=== PATIENT | male | born 1970 | race Caucasian/White ===

== ENCOUNTER 2020-03-22 11:18 | Inpatient (IN) | payer BC, OTHER ==
[~2020-03-22 11:18] MED LIST: diazePAM 5 MG TABLET PO SCH
--- NOTE | 2020-03-22 11:52 | BHS.RME ---
Substance Use & Tx History - Substance Use History Heroin Substance amount: 6-7 bags Frequency of use: Daily Substance route: Inhalation (ex: sniffing or snorting) Date of Last Use: 03/19/20 Nicotine Substance amount: 7 ciggs Frequency of use: Daily Substance route: Smoking Physical/Psych/Mental Status - Behavior General Behavior: Increased activity (restlessness, agitation) Eye Contact: Normal - Cooperativeness Cooperativeness: Cooperative - Thinking Thought Processes: Tight, Logical, Goal Directed Thought content: Future oriented - Physical Health Problems Is patient presently having any pain?: No Does patient presently have any injuries (include location): No Does patient currently have a fever: No Is patient : No CIWA Nausea/Vomitin Muscle Tremors: 3 Anxiety: 3 Agitation: 2 Paroxysmal Sweats: 2 Orientation: 0-Oriented Tacttile Disturbances: 0-None Auditory Disturbances: 0-None Visual Disturbances: 0-None Headache: 1-Very Mild CIWA-Ar Total Score: 13
[2020-03-22 13:10] VITALS: BMI 34.7
--- NOTE | 2020-03-22 13:10 | HP ---
COWS - Scale Resting Pulse: 1= SD 81-100 Sweatin= Chills/Flushing Restless Observation: 1= Difficult to Sit Still Pupil Size: 0= Normal to Room Light Bone or Joint Aches: 1= Mild Discomfort Runny Nose/ Eye Tearin= Nasal Congestion GI Upset > 30mins: 1= Stomach Cramp Tremor Observation: 1= Tremor [place], Not Seen Yawning Observation: 1= 1-2x During Session Anxiety or Irritability: 2=Irritable/Anxious Goose Flesh Skin: 0=Smooth Skin (mitigated by use of heroin yesterday) COWS Score: 10 CIWA Score Nausea/Vomitin Muscle Tremors: 3 Anxiety: 3 Agitation: 2 Paroxysmal Sweats: 2 Orientation: 0-Oriented Tacttile Disturbances: 0-None Auditory Disturbances: 0-None Visual Disturbances: 0-None Headache: 1-Very Mild CIWA-Ar Total Score: 13 - Admission Criteria [facility]AS[facility] Guidelines: Admission for Medically Managed Detox: Requires at least one of the followin. CIWA greater than 12 2. Seizures within the past 24 hours 3. Delirium tremens within the past 24 hours 4. Hallucinations within the past 24 hours 5. Acute intervention needed for co occurring medical disorder 6. Acute intervention needed for co occurring psychiatric disorder 7. Severe withdrawal that cannot be handled at a lower level of care (continued vomiting, continued diarrhea, abnormal vital signs) requiring intravenous medication and/or fluids 8. Admitting History and Physical - Smoking History Smoking history: Current every day smoker Have you smoked in the past 12 months: Yes Aproximately how many cigarettes per day: 20 Admission [facility] Chief Complaint: " I need to stop using drugs and using Xanax." Allergies/Adverse Reactions: Allergies Allergy/AdvReac Type Severity Reaction Status Date / Time No Known Allergies Allergy Verified 03/22/20 13:04 History of Present Illness: 49 year old male with history of opioid dependence on agonist therapy, sedative dependence with withdrawals, cocaine dependence, nicotine dependence. He was being detoxed from [facility] and last received 20 mg of methadone yesterday. He wants to continue his methadone detox here and also his sedative detox. Substance Use History Heroin Substance amount: 6-7 bags Frequency of use: Daily Substance route: Inhalation (ex: sniffing or snorting) Date of Last Use: 03/19/20 Nicotine Substance amount: 7 ciggs Frequency of use: Daily Substance route: Smoking Xanax 2 mg - 2 tabs every 3 days, started at age 48 and last used 2 days ago Cocaine, $30 every three weeks, started at age 34 and last used yesterday. CIWA=13 NORBERTO=0 Urine Tox: ANNE-MARIE, FEN, MOP, BZO PMH: Obesity Psurg: Left Knee knee cap fracture, Right Knee Surgery for meniscal tear. Patient meets criteria for detox as he is concurrently using benzodiazepines and opiates as exhibited by his urine tox. He is at high risk for overdose. Exam Limitations: No Limitations - Ebola screening Have you traveled outside of the country in the last 21 days: No Have you had contact with anyone from an Ebola affected area: No Have you been sick,other than usual withdrawal symptoms: No Do you have a fever: No - Review of Systems Constitutional: Chills, Diaphoresis EENT: reports: No Symptoms Reported Respiratory: reports: No Symptoms reported Cardiac: reports: No Symptoms Reported GI: reports: No Symptoms Reported : reports: No Symptoms Reported Musculoskeletal: reports: No Symptoms Reported Integumentary: reports: No Symptoms Reported Neuro: reports: No Symptoms reported, Headache, Tremors Endocrine: reports: No Symptoms Reported Hematology: reports: No Symptoms Reported Psychiatric: reports: Judgement Intact, Mood/Affect Appropiate, Orientated x3, Agitated, Anxious Other Systems: Reviewed and Negative Patient History - Patient Medical History Hx Asthma: No Hx Chronic Obstructive Pulmonary Disease (COPD): No Hx Cardiac Disorders: No Hx Hypertension: No Hx Seizures: No Hx Diabetes: No Hx Gastrointestinal Disorders: No Hx Genitourinary Disorders: No Hx Sexually Transmitted Disorders: No Hx Renal Disease (ESRD): No Hx Depression: Yes Hx Suicide Attempt: No Hx Schizophrenia: No - Patient Surgical History Past Surgical History: Yes Hx Neurologic Surgery: No Hx Cataract Extraction: No Hx Cardiac Surgery: No Hx Lung Surgery: No Hx Breast Surgery: No Hx Breast Biopsy: No Hx Abdominal Surgery: No Hx Appendectomy: No Hx Cholecystectomy: No Hx Genitourinary Surgery: No Hx Section: No Hx Orthopedic Surgery: Yes (left knee fx/ rt Torn miniscus Sport injury) Anesthesia Reaction: No - PPD History Previous Implant?: Yes Documented Results: Negative w/proof Implanted On Prior R Admission?: Yes PPD to be Administered?: Yes - Smoking Cessation Smoking history: Current every day smoker Have you smoked in the past 12 months: Yes Aproximately how many cigarettes per day: 20 Hx Chewing Tobacco Use: No Initiated information on smoking cessation: Yes 'Breaking Loose' booklet given: 03/22/20 - Substances abused Heroin Other (specify): 6-7 bags Substance route: Inhalation Frequency: Daily Amount used: 6-7 bags Age of first use: 48 Date of last use: 03/21/20 Cocaine Substance route: Inhalation Frequency: 1-3 times last 30 days Amount used: $30 Age of first use: 34 Date of last use: 03/21/20 Alprazolam (Xanax) Substance route: Oral Frequency: 3-6 times per week Amount used: 2mg - 2 tabs Age of first use: 48 Date of last use: 03/21/20 Admission Physical Exam [facility] Physical General Appearance: Yes: Obese, Irritable, Sweating, Anxious HEENTM: Yes: EOMI, Hearing grossly Normal, Normal ENT Inspection, Normocephalic, Normal Voice, FRANKI, Pharynx Normal, Tm's normal Respiratory: Yes: Chest Non-Tender, Lungs Clear, Normal Breath Sounds, No Respiratory Distress, No Accessory Muscle Use Neck: Yes: No masses,lesions,Nodules, Supple, Trachea in good position Breast: Yes: Within Normal Limits Cardiology: Yes: Regular Rhythm, Regular Rate, S1, S2 Abdominal: Yes: Normal Bowel Sounds, Non Tender, Soft, Protuberent Genitourinary: Yes: Within Normal Limits Back: Yes: Normal Inspection Musculoskeletal: Yes: full range of Motion, Gait Steady, Pelvis Stable Extremities: Yes: Normal Capillary Refill, Normal Inspection, Normal Range of Motion, Non-Tender Neurological: Yes: laboratory worker II-XII NML intact, Fully Oriented, Alert, Motor Strength 5/5, Normal Mood/Affect, Normal Response Integumentary: Yes: Normal Color, Dry, Warm Lymphatic: Yes: Within Normal Limits - Diagnostic (1) Opioid dependence Current Visit: Yes Status: Acute (2) Cocaine use disorder Current Visit: Yes Status: Acute (3) Sedative, 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 Current Visit: Yes Status: Acute (4) Nicotine dependence Current Visit: Yes Status: Acute Cleared for Admission [facility] - Detox or Rehab [facility] Level of Care: Medically Managed Detox Regimen/Protocol: Methadone, Valium Claeared for Rehab Admission: No Screened but not Admitted - Documentation of Visit Screened but not Admitted: No Breathalyzer - Breathalyzer Breathalyzer: 0 Vital Signs - Vital Signs Vital signs refused: No Temperature: 97 F Pulse Rate: 63 Respiratory Rate: 10 Blood Pressure: 103/67 BP Location: Left Arm Blood Pressure position: Sitting - Height Height: 6 ft 1 in - Weight Weight: 263 lb Weight measurement method: Standing scale - BMI Body Mass Index (BMI): 34.7 - Bowel Function Bowel Movement: No Inpatient Rehab Admission - Rehab Decision to Admit Inpatient rehab admission?: No
[2020-03-22] MEDS ORDERED: MENTHOL/PHENOL 1 EACH UD MM PRN (13:33)
[2020-03-22] MEDS ORDERED: IBUPROFEN 400 MG TABLET (FP) PO PRN (13:33)
[2020-03-22] MEDS ORDERED: METHOCARBAMOL 500 MG TABLET PO PRN (13:33)
[2020-03-22] MEDS ORDERED: diazePAM 5 MG TABLET PO PRN ×2 (13:33→13:40)
[2020-03-22] MEDS ORDERED: MAG HYDROX/AL HYDROX/SIMETH 30 ML UNIT-DOSE CUP PO PRN (13:33)
[2020-03-22] MEDS ORDERED: MAGNESIUM HYDROX 2400MG/30ML ORAL SUSPENSION 30 ML CUP PO PRN (13:33)
[2020-03-22] MEDS ORDERED: MAGNESIUM CITRATE 300 ML BOTTLE PO PRN (13:33)
[2020-03-22] MEDS ORDERED: ACETAMINOPHEN 325 MG TABLET (FP) PO PRN ×2 (13:33)
[2020-03-22] MEDS ORDERED: ONDANSETRON *ODT* 4 MG TABLET SL PRN (13:33)
[2020-03-22] MEDS ORDERED: BISMUTH SUBSALICYLATE 524 MG/30 ML UD PO PRN (13:33)
[2020-03-22] MEDS ORDERED: NICOTINE POLACRILEX 2 MG GUM BUC PRN (13:33)
[2020-03-22] MEDS ORDERED: METHADONE HCL 10 MG TABLET (FOR DETOX USE ONLY) ONE (13:43)
[2020-03-22] MEDS ORDERED: METHADONE HCL 10 MG TABLET PO SCH (13:45)
[2020-03-22] MEDS ORDERED: METHADONE HCL 10 MG TABLET (FOR DETOX USE ONLY) PO ONE ×2 (14:15→14:55)
[2020-03-22] MEDS ORDERED: METHADONE HCL 5 MG TABLET (FOR DETOX USE ONLY) PO ONE ×2 (14:15→14:30)
[2020-03-22] MEDS: diazePAM 5 MG TABLET PO SCH ×3 (15:07→22:29)
[2020-03-22] MEDS: ALBUTEROL SO4 HFA INHALER IH SCH ×2 (15:07→22:29)
[2020-03-22] MEDS: PRENATAL VITAMINS W/ FOLIC ACID TABLET (FP) PO SCH (15:08)
[2020-03-22] MEDS: hydrOXYzine PAMOATE 25 MG CAPSULE (FP) PO SCH ×3 (15:08→22:29)
[2020-03-22] MEDS: NICOTINE 7 MG/24 HOURS TOPICAL PATCH TD SCH (15:15)
--- NOTE | 2020-03-22 16:32 | EKG ---
Test Reason : Blood Pressure : / mmHG Vent. Rate : 066 BPM Atrial Rate : 066 BPM P-R Int : 160 ms QRS Dur : 094 ms QT Int : 394 ms P-R-T Axes : 069 005 031 degrees QTc Int : 413 ms NORMAL SINUS RHYTHM POSSIBLE LEFT ATRIAL ENLARGEMENT INFERIOR INFARCT , AGE UNDETERMINED ABNORMAL ECG NO PREVIOUS ECGS AVAILABLE Confirmed by DENISE AREVALO MD ([id number]) on 03/22/2020 4:31:25 PM Referred By: Confirmed By:DENISE AREVALO MD
[2020-03-22 17:11] LABS: HEMATOCRIT 37.8 % (35.4-49); MCH 31.1 pg (25.7-33.7); MCHC 34.4 g/dl (32.0-35.9); MEAN CELL VOLUME 90.3 fl (80-96); MEAN PLT VOLUME 8.6 fl (7.5-11.1); PLATELET COUNT 226 K/MM3 (134-434); RBC 4.18 M/mm3 (4.00-5.60); RDW 13.5 % (11.9-15.9); WHITE BLOOD COUNT 6.7 K/mm3 (4.0-10.0)
[2020-03-22 17:28] LABS: ALBUMIN 3.2 g/dl (3.4-5.0); BILIRUBIN,TOTAL 0.5 mg/dL (0.2-1); BLOOD UREA NITROGEN 11.4 mg/dL (7-18); CALCIUM 9.1 mg/dL (8.5-10.1); POTASSIUM 4.1 mmol/L (3.5-5.1); TOT PROT 6.9 g/dl (6.4-8.2)
[2020-03-22] MEDS ORDERED: MELATONIN 5 MG TABLETS PO SCH (22:00)
[2020-03-22] MEDS: THIAMINE HCL 100 MG TABLET (FP) PO SCH (22:29)
[2020-03-23] MEDS ORDERED: METHADONE HCL 10 MG TABLET PO SCH (06:00)
[2020-03-23] MEDS: hydrOXYzine PAMOATE 25 MG CAPSULE (FP) PO SCH ×2 (06:11→09:57)
[2020-03-23] MEDS: diazePAM 5 MG TABLET PO SCH ×4 (06:12→22:23)
[2020-03-23] MEDS: ALBUTEROL SO4 HFA INHALER IH SCH (06:12)
[2020-03-23] MEDS: NICOTINE 7 MG/24 HOURS TOPICAL PATCH TD SCH (09:57)
[2020-03-23] MEDS: PRENATAL VITAMINS W/ FOLIC ACID TABLET (FP) PO SCH (09:57)
[2020-03-23] MEDS ORDERED: ALBUTEROL SO4 HFA INHALER IH PRN (10:29)
[2020-03-23] MEDS ORDERED: hydrOXYzine PAMOATE 25 MG CAPSULE (FP) PO PRN (11:36)
[2020-03-23] MEDS ORDERED: METHADONE HCL 10 MG TABLET (FOR DETOX USE ONLY) PO ONE (11:42)
--- NOTE | 2020-03-23 11:48 | PN ---
[facility] CIWA - CIWA Score Nausea/Vomitin-No Nausea/No Vomiting Muscle Tremors: 2 Anxiety: 1-Mildly Anxious Agitation: 1-Slight > Activity Paroxysmal Sweats: No Perspiration Orientation: 0-Oriented Tacttile Disturbances: 0-None Auditory Disturbances: 0-None Visual Disturbances: 0-None Headache: 0-None Present CIWA-Ar Total Score: 4 S COWS - Scale Resting Pulse: 0= [place] 80 or Below Sweatin= Chills/Flushing Restless Observation: 0= Sits Still Pupil Size: 0= Normal to Room Light Bone or Joint Aches: 1= Mild Discomfort Runny Nose/ Eye Tearin= None GI Upset > 30mins: 0= None Tremor Observation of Outstretched Hands: 1= Tremor [place], Not Seen Yawning Observation: 1= 1-2x During Session Anxiety or Irritability: 0= None Goose Flesh Skin: 0=Smooth Skin COWS Score: 4 S Progress Note (SOAP) Subjective: sweats body aches Objective: 03/23/20 11:45 Vital Signs Temperature 97.8 F 03/23/20 06:04 Pulse Rate 62 03/23/20 06:04 Respiratory Rate 18 03/23/20 06:04 Blood Pressure 133/91 03/23/20 06:04 O2 Sat by Pulse Oximetry (%) 96 03/23/20 06:04 Laboratory Tests 03/22/20 03/22/20 03/22/20 13:30 13:30 13:30 WBC 6.7 RBC 4.18 Hgb 13.0 Hct 37.8 MCV 90.3 MCH 31.1 MCHC 34.4 RDW 13.5 Plt Count 226 MPV 8.6 Sodium 138 Potassium 4.1 Chloride 102 Carbon Dioxide 32 Anion Gap 4 L BUN 11.4 Creatinine 1.0 Est GFR (CKD-EPI)AfAm 101.26 Est GFR (CKD-EPI)NonAf 87.37 Random Glucose 126 H Calcium 9.1 Total Bilirubin 0.5 AST 24 ALT 25 Alkaline Phosphatase 86 Total Protein 6.9 Albumin 3.2 L Syphilis Serology COVID-19 ([facility]) HIV Ag/Ab Combo Qual Negative 03/22/20 03/22/20 13:30 13:40 WBC RBC Hgb Hct MCV MCH MCHC RDW Plt Count MPV Sodium Potassium Chloride Carbon Dioxide Anion Gap BUN Creatinine Est GFR (CKD-EPI)AfAm Est GFR (CKD-EPI)NonAf Random Glucose Calcium Total Bilirubin AST ALT Alkaline Phosphatase Total Protein Albumin Syphilis Serology Non-reactive COVID-19 ([facility]) Not detected HIV Ag/Ab Combo Qual labs noted aaox3 ambulating no acute distress Assessment: 03/23/20 11:46 withdrawals Plan: continue detox with methadone taper. pt was on a methadone program last dose of 20mg but missed 4 days. all this information confirmed by his program as per Dr. Mckenzie. therefore, pt is being detox from his program today he will receive 10mg of methadone and tomorrow 5mg of methadone. pt will continue to detox from his benzodiazpaine abuse with valium as ordered.
[2020-03-23] MEDS ORDERED: METHADONE HCL 5 MG TABLET (FOR DETOX USE ONLY) PO ONE (14:30)
--- NOTE | 2020-03-23 14:30 | CONSULT ---
[facility] Psychiatric Consult - Data Date of interview: 03/23/20 Admission source: Self-referred Identifying data: Mr Dennis is a 49 years old single male, father of 4 children, unemployed receiving public assistance, doiciled seeking detox treatment for opioid, cocaine and benzodiazepine Substance Abuse History: Reports history of heroin, cocaine and xanax use. Refer to addiction counselor's summary for further information Medical History: Significant for history of orthosurgery(fracture left patella, repair meniscus right knee). Patient is on methadone 20 mg/day from [facility]. Smokes cigarettes 1 ppd Psychiatric History: This is patient's first admission to this facility. He reports that his first psychiatric contact occured in 2011 when he started receiving treatment for depression at [facility]. Reports that he continued to attend same clinic for 2-3 years and he was prescribed Wellbutrin. No further psychiatric treatment and no medication since. Denies previous psychiatric hospitalization or suicidal attempt. At present, reports feeling depressed and sleeping poorly Physical/Sexual Abuse/Trauma History: Denies history of abuse as a child or DV relationship as an adult Mental Status Exam - Mental Status Exam Alert and Oriented to: Time, Place, Person Cognitive Function: Fair Patient Appearance: Disheveled Mood: Depressed Affect: Appropriate Patient Behavior: Cooperative Speech Pattern: Clear Voice Loudness: Normal Thought Process: Intact, Goal Oriented Hallucinations: Denies Suicidal Ideation: Denies Homicidal Ideation: Denies Insight/Judgement: Poor Sleep: Poorly Appetite: Fair Muscle strength/Tone: Normal Gait/Station: Normal Psychiatric Findings - Problem List ([place] 1, 2,3) (1) Depressive disorder Current Visit: Yes Status: Chronic (2) MDD (major depressive disorder) Current Visit: Yes Status: Ruled-out (3) Substance induced mood disorder Current Visit: Yes Status: Acute (4) Substance-induced sleep disorder Current Visit: Yes Status: Acute (5) Cocaine use disorder Current Visit: Yes Status: Acute (6) Sedative, 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 2) Continue inpatient detoxification
[2020-03-23] MEDS ORDERED: SUVOREXANT 10 MG TABLET PO PRN (22:00)
[2020-03-23] MEDS: THIAMINE HCL 100 MG TABLET (FP) PO SCH (22:23)
[2020-03-24] MEDS ORDERED: diazePAM 5 MG TABLET PO SCH (06:00)
[2020-03-24] MEDS ORDERED: METHADONE HCL 5 MG TABLET (FOR DETOX USE ONLY) PO ONE ×2 (06:00→10:00)
[2020-03-24] MEDS: diazePAM 5 MG TABLET PO SCH ×3 (06:39→22:12)
[2020-03-24] MEDS ORDERED: METHADONE HCL 10 MG TABLET (FOR DETOX USE ONLY) PO ONE (10:00)
[2020-03-24] MEDS: NICOTINE 7 MG/24 HOURS TOPICAL PATCH TD SCH (10:23)
[2020-03-24] MEDS: PRENATAL VITAMINS W/ FOLIC ACID TABLET (FP) PO SCH (10:25)
--- NOTE | 2020-03-24 11:34 | PN ---
[facility] CIWA - CIWA Score Nausea/Vomitin-No Nausea/No Vomiting Muscle Tremors: 1-None Visible, but [place] Anxiety: 2 Agitation: 1-Slight > Activity Paroxysmal Sweats: 1-Minimal [place] Moist Orientation: 0-Oriented Tacttile Disturbances: 0-None Auditory Disturbances: 0-None Visual Disturbances: 0-None Headache: 0-None Present CIWA-Ar Total Score: 5 S COWS - Scale Resting Pulse: 0= [place] 80 or Below Sweatin= Chills/Flushing Restless Observation: 0= Sits Still Pupil Size: 0= Normal to Room Light Bone or Joint Aches: 2= Severe Diffuse Aches Runny Nose/ Eye Tearin= None GI Upset > 30mins: 0= None Tremor Observation of Outstretched Hands: 1= Tremor [place], Not Seen Yawning Observation: 0= None Anxiety or Irritability: 2=Irritable/Anxious Goose Flesh Skin: 0=Smooth Skin COWS Score: 6 S Progress Note (SOAP) Subjective: Complaints of anxiety, tremors sweats and joints ache. Objective: 03/24/20 11:33 Vital Signs 03/24/20 03/24/20 05:37 08:47 Temperature 99.5 F 98.2 F Pulse Rate 69 67 Respiratory 20 20 Rate Blood Pressure 143/80 149/89 O2 Sat by Pulse 98 98 Oximetry (%) Laboratory Last Values WBC 6.7 K/mm3 (4.0-10.0) 03/22/20 13:30 RBC 4.18 M/mm3 (4.00-5.60) 03/22/20 13:30 Hgb 13.0 GM/dL (11.7-16.9) 03/22/20 13:30 Hct 37.8 % (35.4-49) 03/22/20 13:30 MCV 90.3 fl (80-96) 03/22/20 13:30 MCH 31.1 pg (25.7-33.7) 03/22/20 13:30 MCHC 34.4 g/dl (32.0-35.9) 03/22/20 13:30 RDW 13.5 % (11.9-15.9) 03/22/20 13:30 Plt Count 226 K/MM3 (134-434) 03/22/20 13:30 MPV 8.6 fl (7.5-11.1) 03/22/20 13:30 Sodium 138 mmol/L (136-145) 03/22/20 13:30 Potassium 4.1 mmol/L (3.5-5.1) 03/22/20 13:30 Chloride 102 mmol/L (98-107) 03/22/20 13:30 Carbon Dioxide 32 mmol/L (21-32) 03/22/20 13:30 Anion Gap 4 MMOL/L (8-16) L 03/22/20 13:30 BUN 11.4 mg/dL (7-18) 03/22/20 13:30 Creatinine 1.0 mg/dL (0.55-1.3) 03/22/20 13:30 Est GFR (CKD-EPI)AfAm 101.26 03/22/20 13:30 Est GFR (CKD-EPI)NonAf 87.37 03/22/20 13:30 Random Glucose 126 mg/dL (74-106) H 03/22/20 13:30 Calcium 9.1 mg/dL (8.5-10.1) 03/22/20 13:30 Total Bilirubin 0.5 mg/dL (0.2-1) 03/22/20 13:30 AST 24 U/L (15-37) 03/22/20 13:30 ALT 25 U/L (13-61) 03/22/20 13:30 Alkaline Phosphatase 86 U/L (45-117) 03/22/20 13:30 Total Protein 6.9 g/dl (6.4-8.2) 03/22/20 13:30 Albumin 3.2 g/dl (3.4-5.0) L 03/22/20 13:30 Syphilis Serology Non-reactive (NONREACTIVE) 03/22/20 13:30 COVID-19 ([facility]) Not detected (Not Detected) 03/22/20 13:40 HIV Ag/Ab Combo Qual Negative (NEGATIVE) 03/22/20 13:30 Labs noted. Assessment: 03/24/20 11:34 Alert and oriented x 3, in no acute distress. Full ROM, ambulating in the unit without assistance. Skin was to touch with any lesions. Withdrawal symptoms. Plan: Continue detox protocol.
[2020-03-24] MEDS: THIAMINE HCL 100 MG TABLET (FP) PO SCH (22:12)
[2020-03-25] MEDS ORDERED: diazePAM 5 MG TABLET PO SCH ×2 (06:00)
[2020-03-25 06:38] VITALS: BP 155/100; PULSE 72; TEMP 97.3
--- NOTE | 2020-03-25 07:45 | DS ---
[facility] Detox Discharge Summary Admission Date: 03/22/20 - History Additional Comments: called by nursing for pt stating he wanted to leave . Pt states " I just want to go home " , no further reason given . Pt declined further medical attention or evaluation . AAO x 3 , ambulating freely . Risks of leaving prior to completion of treatment were discussed . Pt indicated he wished to proceed with discharge . Vital Signs - 24 hr 03/24/20 03/24/20 03/24/20 08:47 12:32 17:10 Temperature 98.2 F 97.8 F 96.6 F L Pulse Rate 67 79 74 Respiratory 20 20 18 Rate Blood Pressure 149/89 153/95 137/75 O2 Sat by Pulse 98 98 Oximetry (%) 03/24/20 03/25/20 20:55 05:34 Temperature 96.2 F L 97.3 F L Pulse Rate 77 72 Respiratory 17 20 Rate Blood Pressure 138/84 155/100 O2 Sat by Pulse 95 99 Oximetry (%) - Physical Exam Results Vital Signs: Vital Signs Temperature 97.3 F L 03/25/20 05:34 Pulse Rate 72 03/25/20 05:34 Respiratory Rate 20 03/25/20 05:34 Blood Pressure 155/100 03/25/20 05:34 O2 Sat by Pulse Oximetry (%) 99 03/25/20 05:34 - Medication Discharge Medications: Ambulatory Orders Albuterol Sulfate Inhaler - [Ventolin Hfa Inhaler -] 2 inh PO Q4H 03/22/20 Methadone [Dolophine -] 25 mg PO DAILY 03/22/20 - AMA Did Patient Leave Against Medical Advice: Yes
[2020-03-26] MEDS ORDERED: diazePAM 5 MG TABLET PO ONE ×2 (06:00)
== END 2020-03-25 08:29 | disposition left against medical advice (07) | DRG 770 ==
LOC: YASAS 11:18 → Y6N 13:32
PROVIDERS: ADMIT Allergy & Immunology; ATTEND Allergy & Immunology
PROC: HZ2ZZZZ Detoxification Services for Substance Abuse Treatment (ICD-10-PCS; principal; 2020-03-22)
DX: F13.231 Sedative, 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 (principal); F11.20 Opioid dependence, uncomplicated; F14.20 Cocaine dependence, uncomplicated; F17.210 Nicotine dependence, cigarettes, uncomplicated; F19.282 Other psychoactive substance dependence with psychoactive substance-induced sleep disorder; F19.24 Other psychoactive substance dependence with psychoactive substance-induced mood disorder; F32.9 Major depressive disorder, single episode, unspecified; E66.9 Obesity, unspecified; Z68.34 Body mass index [BMI] 34.0-34.9, adult; Z87.81 Personal history of (healed) traumatic fracture; Z56.0 Unemployment, unspecified
CPT/HCPCS: 36415; 80053; 85027; 86780; 87389; 93005; 93010; U0003